=== PATIENT | male | born 2000 | race Caucasian/White ===

== ENCOUNTER → 2018-09-17 12:55 | Outpatient (CLI) | payer OTHER, SELFPAY ==
--- NOTE | 2018-09-17 13:02 | US_ITS ---
US abdomen limited History: Ordering Physician:Lionel Pretty MD Patient Age: 18 years Comparison:None Findings: Pancreas:Unremarkable. No obvious mass or abnormal fluid collection. No ductal dilatation Liver:Unremarkable. No obvious mass or abnormal fluid collection. No ductal dilatation Right Kidney:Unremarkable. Normal size and echogenicity. No hydronephrosis Gallbladder:No gallstones, gallbladder wall thickening, pericholecystic fluid, or biliary dilatation. Small amount of visible sludge is noted in the gallbladder Impression: 1. Small amount of gallbladder sludge. 2. Otherwise negative right upper quadrant ultrasound
== END ==
PROVIDERS: PCP Family Medicine; Visit Provider Family Medicine
DX: R10.11 Right upper quadrant pain (principal)
CPT/HCPCS: 76705

== ENCOUNTER → 2018-09-27 09:54 | Outpatient (CLI) | payer OTHER, SELFPAY ==
--- NOTE | 2018-09-27 09:56 | NM_ITS ---
NM hepatobiliary w pharm HISTORY: Right upper quadrant pain ITS.REASON: RUQ PAIN, SLUDGE ORDERING PHYSICIAN: Lionel Pretty MD PATIENT AGE: 18 years COMPARISON: 09/17/2018 DOSE: 7.82 MCI TC Choletec 1.6 MCG cck FINDINGS: Homogeneous activity is present within the hepatic parenchyma. Activity is present in the gallbladder by 10 minutes. Activity is present in the small bowel by 15 minutes. The gallbladder ejection fraction is calculated to be 82% The patient did not report pain or other symptoms during CCK infusion. IMPRESSION: Unremarkable hepatobiliary scan and gallbladder ejection fraction. No evidence of common or cystic duct obstruction with normal gallbladder ejection fraction
--- NOTE | 2018-09-27 14:59 | HMH.ITSHM ---
Current Home Medications as stated by this patient Yasmani Dhillon or desk representative. []KATHY
== END ==
PROVIDERS: PCP Family Medicine; Visit Provider Family Medicine
DX: R10.11 Right upper quadrant pain (principal); K82.8 Other specified diseases of gallbladder
CPT/HCPCS: 78227; A9537; J2805

== ENCOUNTER → 2018-10-09 09:32 | Outpatient (CLI) | payer OTHER, SELFPAY ==
--- NOTE | 2018-10-09 09:39 | CT_ITS ---
CT abdomen pelvis w con CLINICAL INDICATION: Midepigastric pain, right-sided abdominal pain ITS.REASON: ABD PAIN, N/V ORDERING PHYSICIAN: iLonel Pretty MD PATIENT AGE: 18 years COMPARISON: None TECHNIQUE: Axial images obtained with sagittal and coronal reformats. All CT scans at the facility use one or more dose reduction, viz: automated exposure control, ma/kV adjustment per patient size (including targeted exams where dose is matched to indication, i.e. head), or iterative reconstruction technique. PROCEDURE: Oral Contrast: Redicat IV Contrast: 75 mL's Optiray 350. FINDINGS: There is a 5 x 2 mm nodular opacity in the right middle lobe nonspecific. The liver, adrenal glands, pancreas, gallbladder, and kidneys have an unremarkable appearance there is borderline splenomegaly at 13 cm. No splenic lesions evident. Scattered small lymph nodes are present in the mesentery is nonspecific. The appendix is retrocecal. There is no evidence of appendicitis.. No intestinal obstruction or free air. No pelvic mass abnormal fluid collection. Inflammatory changes pelvis. There is a tiny umbilical hernia containing fat There is mild lumbar curvature convex left. No acute bony findings. IMPRESSION: 1. Borderline splenomegaly. 2. Otherwise negative with no acute abdominal findings evident
== END ==
PROVIDERS: PCP Family Medicine; Visit Provider Family Medicine
DX: R10.84 Generalized abdominal pain (principal); R11.2 Nausea with vomiting, unspecified
CPT/HCPCS: 74177; Q9967

== ENCOUNTER 2020-05-03 15:17 | Emergency (ER) | payer OTHER, SELFPAY ==
--- NOTE | 2020-05-03 15:31 | XR_ITS ---
PROCEDURE: XR ANKLE LT MIN 3V CLINICAL INDICATION: fell off porch Posttraumatic pain COMPARISON: No exams were available for comparison FINDINGS: No acute fracture or dislocation. No lytic or blastic change. There is a prominent os trigonum. There is some soft tissue swelling along the anterior aspect of the ankle joint. IMPRESSION: Soft tissue swelling otherwise negative Dictated by: Alex Ray MD 05/03/2020 21:48 Alex Ray MD in [place] 05/03/2020 21:48
[2020-05-03 15:32] VITALS: BP 146/69; PULSE 79; RESP 18; TEMP 36.8; O2SAT 99; BMI 25.0
[2020-05-03 15:36] VITALS: BP 146/69; PULSE 79; RESP 18; TEMP 36.7; O2SAT 99; BMI 25.0
--- NOTE | 2020-05-03 15:50 | HMH.EDUTC ---
[facility] [place] Clinical Impression: Left ankle sprain Qualifiers: Encounter type: initial encounter Involved ligament of ankle: anterior talofibular ligament Qualified Code(s): S93.492A - Sprain of other ligament of left ankle, initial encounter Disposition: Home, Self-Care Condition on Discharge: Good Instructions: DI for Ankle Sprain Additional Instructions: Keep foot elevated. Ice for 15-20 minute several times today. Referrals: Lionel Pretty MD [Primary Care Provider] - Time of Disposition: 15:53 Medical Decision Making - Carl Inquiry Pt receiving controlled substance: No Vital Signs: 05/03/20 15:32 05/03/20 15:36 Temperature 98.2 F 98.1 F Temperature Source Oral Oral Pulse Rate [Left Brachial] 79 79 Respiratory Rate 18 18 Blood Pressure [Left Arm] 146/69 H 146/69 H Blood Pressure Mean [Left Arm] 94 94 Blood Pressure Source [Left Arm] Automatic Cuff Automatic Cuff Blood Pressure Position [Left Arm] Sitting Sitting 02 Sat by Pulse Oximetry 99 99 Oxygen Delivery Method Room Air Room Air Orders (Tests/Meds): ORDERS Category Date Time Status Ankle XR - Left minimum 3 Views [XR ankle LT min 3V] Exams 05/03/20 15:31 Taken Stat - Radiology Data #1 Image(s): Ankle Image Reviewed: Yes I reviewed the patient's radiology image Preliminary Findings: Normal/NAD, No Fracture Seen [facility] [place] - General Stated complaint: ao [id number]@1510 fell L ankle Time Seen by Provider: 05/03/20 15:51 Mode of Arrival: Ambulatory Source of Information: Patient Limitations: No Limitations Description of Symptoms (Recalled from Triage Doc. by RN): PATIENT C/O LEFT ANKLE PAIN AND SWELLING AFTER FALLING OFF FRONT PORCH APPROX 15 MINUTES [employer]. ABRASIONS ALSO NOTED TO RIGHT KNEE. DENIES HITTING HEAD OR ANY OTHER INJURIES HEENT Symptoms (Recalled from RN notes): No Resp Symptoms (Recalled from RN notes): No Skin Symptoms (Recalled from RN notes): Yes MS Symptoms (Recalled from RN notes): Yes Functional Status (Recalled from RN notes): WNL - History of Present Illness Provider Complaint: Fell off porch and twisted left ankle just [employer]. Pain and swelling along lateral side of ankle. Onset (ago): hour(s) (1) Location: left, lower extremity Relieving factors: none Exacerbating factors: none Treatments prior to arrival: none - Related Data Allergies Allergy/AdvReac Type Severity Reaction Status Date / Time No Known Allergies Allergy Verified 09/16/18 13:07 - Worker's Comp Is this a Worker's Comp case?: No [facility] History - Hepatitis A Screen Drug use history?: No High risk sexual behaviors?: No History of sexually transmitted infection?: No Currently employed?: No Childcare worker?: No Do you have indoor plumbing?: Yes Do you have electricity?: Yes Attestation statement:: This patient has been screened for Hepatitis A risk factors. I have reviewed the patient's past medical history: No - Social History Smoking Status: Unknown if ever smoked Tobacco Type: smokeless tobacco # Packs/Day (cigarettes): 0 Alcohol Intake: never Occupational Status: other ROS Obtained: Yes All systems reviewed & no additional complaints - Musculoskeletal Musculoskeletal: Reports joint pain Physical Exam - General General appearance: alert, in no apparent distress - Head Head exam: atraumatic, normocephalic - Eye Eye exam: Present: PERRL - Respiratory Respiratory exam: Present: normal lung sounds bilaterally - Cardiovascular Cardiovascular exam: Present: regular rate, normal rhythm - Expanded Lower Extremity Exam Left Ankle exam: Present: tenderness, swelling, tenderness over talofibular lig Neurovascular/Tendon exam: Present: normal capillary refill Gait: observed and limited by pain - Neurological Exam Neurological exam: Present: alert, oriented X3 - Psychiatric Psychiatric exam: Present: normal affect, normal mood
[2020-05-03 15:54] VITALS: BP 146/69; PULSE 79; RESP 18; TEMP 36.7; O2SAT 99
== END 2020-05-03 16:17 | disposition home or self-care (01) ==
LOC: ER 15:30 → UTC 15:30
PROVIDERS: Emergency Provider Physician Assistant; PCP Family Medicine
DX: S93.492A Sprain of other ligament of left ankle, initial encounter (principal); W17.89XA Other fall from one level to another, initial encounter; Y92.018 Other place in single-family (private) house as the place of occurrence of the external cause
CPT/HCPCS: 29515; 73610; 99203